=== PATIENT | male | born 1980 | race Caucasian/White ===

== ENCOUNTER → 2023-10-16 11:12 | Outpatient (REF) | payer OTHER, SELFPAY | LOC: RAD 11:12 | PROVIDERS: ATTENDING PHYSICIAN Physician Assistant; FAMILY PHYSICIAN Nurse Practitioner Family | DX: C15.5 Malignant neoplasm of lower third of esophagus (principal); K91.89 Other postprocedural complications and disorders of digestive system | CPT/HCPCS: 71260; Q9967 ==

== ENCOUNTER → 2023-11-27 10:41 | Outpatient (REF) | payer OTHER, SELFPAY | LOC: HWRAD 10:41 | PROVIDERS: ATTENDING PHYSICIAN Physician Assistant; FAMILY PHYSICIAN Nurse Practitioner Family; REFERRING PHYSICIAN Surgery | DX: C15.5 Malignant neoplasm of lower third of esophagus (principal) | CPT/HCPCS: 71260; 74177; Q9967 ==

== ENCOUNTER → 2024-03-05 12:10 | Outpatient (REF) | payer OTHER, SELFPAY | LOC: RAD 12:10 | PROVIDERS: ATTENDING PHYSICIAN Internal Medicine; FAMILY PHYSICIAN Nurse Practitioner Family | DX: C15.5 Malignant neoplasm of lower third of esophagus (principal) | CPT/HCPCS: 71260; 74177; Q9967 ==

== ENCOUNTER → 2024-05-17 09:08 | Outpatient (REF) | payer OTHER, SELFPAY | LOC: RAD 09:08 | PROVIDERS: ATTENDING PHYSICIAN Urology; FAMILY PHYSICIAN Nurse Practitioner Family; REFERRING PHYSICIAN Physician Assistant | DX: N20.2 Calculus of kidney with calculus of ureter (principal); N13.30 Unspecified hydronephrosis; C15.5 Malignant neoplasm of lower third of esophagus | CPT/HCPCS: 71260; 74176; 74177; Q9967 ==

== ENCOUNTER → 2024-08-02 12:11 | Outpatient (REF) | payer OTHER, SELFPAY | LOC: HWRAD 12:11 | PROVIDERS: ATTENDING PHYSICIAN Nurse Practitioner Family | DX: M25.522 Pain in left elbow (principal) | CPT/HCPCS: 73080 ==

== ENCOUNTER → 2024-10-15 13:14 | Outpatient (REF) | payer OTHER, SELFPAY | LOC: RAD 13:14 | PROVIDERS: ATTENDING PHYSICIAN Internal Medicine; FAMILY PHYSICIAN Physician Assistant; REFERRING PHYSICIAN Nurse Practitioner Family | DX: C15.5 Malignant neoplasm of lower third of esophagus (principal); N20.0 Calculus of kidney | CPT/HCPCS: 71260; 74178; Q9967 ==

== ENCOUNTER → 2024-11-17 08:58 | Outpatient (REF) | payer OTHER, SELFPAY | LOC: RAD 08:58 | PROVIDERS: ATTENDING PHYSICIAN Physical Medicine & Rehabilitation; FAMILY PHYSICIAN Nurse Practitioner Family | DX: M77.02 Medial epicondylitis, left elbow (principal) | CPT/HCPCS: 76882 ==

== ENCOUNTER → 2025-03-15 12:41 | Outpatient (REF) | payer BC, SELFPAY | LOC: RAD 12:41 | PROVIDERS: ATTENDING PHYSICIAN Physician Assistant; FAMILY PHYSICIAN Nurse Practitioner Family; OTHER PHYSICIAN Internal Medicine | DX: N20.0 Calculus of kidney (principal); C15.5 Malignant neoplasm of lower third of esophagus; R91.8 Other nonspecific abnormal finding of lung field | CPT/HCPCS: 71260; 76775; Q9967 ==

== ENCOUNTER → 2025-06-29 12:19 | Outpatient (REF) | payer BC, SELFPAY | LOC: RAD 12:19 | PROVIDERS: ATTENDING PHYSICIAN Internal Medicine; FAMILY PHYSICIAN Nurse Practitioner Family | DX: C15.5 Malignant neoplasm of lower third of esophagus (principal); C15.9 Malignant neoplasm of esophagus, unspecified | CPT/HCPCS: 71260; 74177; Q9967 ==